=== PATIENT | female | born 1935 | race Caucasian/White ===

== ENCOUNTER 2018-07-16 10:39 | Emergency (ER) | payer MEDICARE, OTHER ==
[~2018-07-16] VITALS: Ht 165.1 cm; Wt 117.9 kg
[~2018-07-16 10:39] MED LIST: ALBU90OI6 INH; AMLO5 PO; ATEN50 PO; BISA5EC PO; BREO ELLIPTA 21 EACH INH; BUME2 PO; CALCIUM +VIT D PO; CYAN500 PO; DESO.25TC TOP; DESO.25TO TOP; DIGO.25 PO; FURO80; FURO80 PO; GABA100 PO; LEVSOD75 PO; METO50 PO; MULVITMINF PO; Metoprolol Tar100 MG PO; Questran4 GM PO; VERA120ER; VITAMIN D PO; WARF5 PO; XARELTO15 MG PO
[2018-07-16 11:30] LABS: BASOPHILS ABSOLUTE AUTO 0.03 K/mm3 (0.00-0.23); BASOPHILS PERCENT AUTO 0 % (0-2); EOSINOPHILS ABSOLUTE AUTO 0.51 K/mm3 (0.00-0.68); EOSINOPHILS PERCENT AUTO 7 % (0-6); Hematocrit 41.5 % (33.0-51.0); IMMATURE GRAN ABSOLUTE AUTO 0.03 K/mm3 (0.00-0.10); IMMATURE GRAN PERCENT AUTO 0 % (0-1); LYMPHOCYTES ABSOLUTE AUTO 1.14 K/mm3 (0.84-5.20); LYMPHOCYTES PERCENT AUTO 15 % (21-46); MONOCYTES PERCENT AUTO 11 % (4-13); Mean Corpuscular HGB 31.7 pg (26.0-34.0); Mean Corpuscular HGB Conc 31.3 g/dL (31.5-36.5); Mean Corpuscular Volume 101 fL (80-100); Mean Platelet Volume 9.4 fL (9.1-12.4); NEUTROPHILS ABSOLUTE AUTO 4.99 K/mm3 (1.96-9.15); NEUTROPHILS PERCENT AUTO 67 % (41-73); Platelet Count 292 K/mm3 (150-400); RDW Coefficient Variation 15.3 % (11.7-14.2); RDW Standard Deviation 56.8 fL (35.1-46.3)
[2018-07-16 11:42] LABS: Source, Urine Clean Catch
[2018-07-16 11:46] LABS: Albumin, Blood 2.6 g/dL (3.4-5.0); Albumin/Globulin Ratio 0.7 (0.8-1.8); Bilirubin, Total 0.4 mg/dL (0.1-1.0); Bun/Creatinine Ratio 27.4 (12.0-20.0); Calcium, Blood 8.7 mg/dL (8.5-10.1); Creatinine, Blood 1.17 mg/dL (0.40-1.00); Globulin, Blood 3.5 g/dL (2.2-4.0); Total Protein, Blood 6.1 g/dL (6.4-8.2)
[2018-07-16 11:51] LABS: Bilirubin, Urine Neg (Neg); Blood, Urine Neg (Neg); Glucose Qualitative, Urine Neg (Neg); Ketones, Urine Neg (Neg); Leukocyte Esterase, Urine 2+ (Neg); Nitrite, Urine Neg (Neg); Protein, Urine Neg (Neg); Urobilinogen, Urine NORM (Normal)
[2018-07-16 12:09] LABS: Appearance, Urine Clear (Clear); Bacteria Few /hpf; Color, Urine Yellow (P-Yellow); Red Blood Cells, Urine Not Seen /hpf (0-2); Squamous Epithelial Cells Few /hpf (Few); White Blood Cells, Urine 0-2 /hpf (0-5)
== END 2018-07-16 13:10 | disposition home or self-care (01) ==
LOC: ER 10:39
PROVIDERS: Emergency Medicine
DX: R55 Syncope and collapse (principal); I13.0 Hypertensive heart and chronic kidney disease with heart failure and stage 1 through stage 4 chronic kidney disease, or unspecified chronic kidney disease; I50.9 Heart failure, unspecified; I48.91 Unspecified atrial fibrillation; N18.9 Chronic kidney disease, unspecified; E03.9 Hypothyroidism, unspecified; E66.9 Obesity, unspecified; M19.90 Unspecified osteoarthritis, unspecified site; G62.9 Polyneuropathy, unspecified; Z79.899 Other long term (current) drug therapy
CPT/HCPCS: 36415; 51701; 80053; 81001; 85025; 87077; 87086; 87186; 93005; 93010; 96360; 99284-25; J7030

== ENCOUNTER → 2018-09-22 | Outpatient (CLI) | payer MEDICARE, OTHER ==
[2018-09-22 19:29] LABS: Bilirubin, Urine Neg (Neg); Blood, Urine 2+ (Neg); Glucose Qualitative, Urine Neg (Neg); Ketones, Urine Neg (Neg); Leukocyte Esterase, Urine 3+ (Neg); Nitrite, Urine Pos (Neg); Protein, Urine 2+ (Neg); Urobilinogen, Urine NORM (Normal)
[2018-09-22 19:41] LABS: Appearance, Urine Hazy (Clear); Color, Urine Yellow (P-Yellow)
[2018-09-22 19:42] LABS: White Blood Cells, Urine TNTC /hpf (0-5)
[2018-09-22 19:44] LABS: Bacteria Many /hpf; Squamous Epithelial Cells Few /hpf (Few)
== END | disposition home or self-care (01) ==
LOC: LAB 18:56 → LAB SHORT 18:56
PROVIDERS: Internal Medicine Nephrology
DX: N39.0 Urinary tract infection, site not specified (principal)
CPT/HCPCS: 81001; 87077; 87086; 87186

== ENCOUNTER → 2018-10-18 | Outpatient (CLI) | payer MEDICARE, OTHER ==
[2018-10-18 13:11] LABS: Source, Urine Clean Catch
[2018-10-18 14:14] LABS: Bilirubin, Urine Neg (Neg); Blood, Urine Neg (Neg); Glucose Qualitative, Urine Neg (Neg); Ketones, Urine Neg (Neg); Leukocyte Esterase, Urine Neg (Neg); Nitrite, Urine Pos (Neg); Protein, Urine Neg (Neg); Urobilinogen, Urine NORM (Normal)
[2018-10-18 14:35] LABS: Appearance, Urine Clear (Clear); Color, Urine Yellow (P-Yellow)
[2018-10-18 14:36] LABS: Bacteria Mod /hpf; Calcium Oxalate Crystals Few /hpf; Red Blood Cells, Urine 0-2 /hpf (0-2); Squamous Epithelial Cells Few /hpf (Few); White Blood Cells, Urine 0-2 /hpf (0-5)
== END | disposition home or self-care (01) ==
LOC: LAB 13:08 → LAB SHORT 13:08
PROVIDERS: Nurse Practitioner Family
DX: N39.0 Urinary tract infection, site not specified (principal)
CPT/HCPCS: 81001

== ENCOUNTER → 2018-10-19 | Outpatient (CLI) | payer MEDICARE, OTHER ==
[2018-10-19 14:22] LABS: Appearance, Urine Clear (Clear); Bilirubin, Urine Neg (Neg); Blood, Urine Neg (Neg); Color, Urine Yellow (P-Yellow); Glucose Qualitative, Urine Neg (Neg); Ketones, Urine Neg (Neg); Leukocyte Esterase, Urine 2+ (Neg); Nitrite, Urine Neg (Neg); Protein, Urine Neg (Neg); Specific Gravity, Urine 1.015 (1.003-1.022); Urobilinogen, Urine NORM (Normal)
[2018-10-19 15:17] LABS: Bacteria Few /hpf; Red Blood Cells, Urine 0-2 /hpf (0-2); Squamous Epithelial Cells Few /hpf (Few)
== END | disposition home or self-care (01) ==
LOC: LAB 13:47 → LAB SHORT 13:47
PROVIDERS: Nurse Practitioner Family
DX: N39.0 Urinary tract infection, site not specified (principal)
CPT/HCPCS: 81001; 87077; 87086; 87186

== ENCOUNTER → 2019-02-20 | Outpatient (CLI) | payer MEDICARE, OTHER ==
[~2019-02-20] MED LIST changes: +ACET500 PO; +ASCO500 PO; -BUME2 PO; +Bumetanide1 MG PO; +CALCIUM 600 +1 EA11 PO; +CENTRUM SILVER1 EAC2 PO; +ESCI10 PO; +HYDR1TAB94 PO; +LEVFLO500 PO; +METO100ER PO; +METO2.5 PO; +MIRALAX17 GM PO; +POTA10T PO; +TRAZ50 PO
[2019-02-21 15:43] LABS: Bilirubin, Urine Neg (Neg); Blood, Urine 1+ (Neg); Glucose Qualitative, Urine Neg (Neg); Ketones, Urine Neg (Neg); Leukocyte Esterase, Urine 3+ (Neg); Nitrite, Urine Pos (Neg); Protein, Urine Neg (Neg); Urobilinogen, Urine NORM (Normal)
[2019-02-21 15:54] LABS: Appearance, Urine Clear (Clear); Color, Urine Yellow (P-Yellow)
[2019-02-21 15:55] LABS: Bacteria Mod /hpf; Squamous Epithelial Cells Few /hpf (Few); White Blood Cells, Urine 50-100 /hpf (0-5)
== END | disposition home or self-care (01) ==
LOC: LAB SHORT 15:27 → LAB 15:27 → LAB SHORT 02-21 15:27
PROVIDERS: Nurse Practitioner Family
DX: N39.0 Urinary tract infection, site not specified (principal)
CPT/HCPCS: 81001; 87077; 87086; 87186

== ENCOUNTER → 2019-02-28 | Outpatient (CLI) | payer MEDICARE, OTHER | END | disposition home or self-care (01) | LOC: LAB SHORT 13:18 → LAB 13:18 → LAB SHORT 03-01 13:12 | DX: N39.0 Urinary tract infection, site not specified (principal) | CPT/HCPCS: 87086 ==

== ENCOUNTER → 2019-03-14 | Outpatient (CLI) | payer MEDICARE, OTHER ==
[2019-03-15 19:02] LABS: Source, Urine Clean Catch
[2019-03-15 19:13] LABS: Bilirubin, Urine Neg (Neg); Blood, Urine Neg (Neg); Glucose Qualitative, Urine Neg (Neg); Ketones, Urine Neg (Neg); Leukocyte Esterase, Urine Neg (Neg); Nitrite, Urine Neg (Neg); Protein, Urine Neg (Neg); Urobilinogen, Urine NORM (Normal)
[2019-03-15 19:19] LABS: Appearance, Urine Clear (Clear); Color, Urine Yellow (P-Yellow)
== END | disposition home or self-care (01) ==
LOC: LAB SHORT 18:59 → LAB 18:59
PROVIDERS: Nurse Practitioner Family
DX: N39.0 Urinary tract infection, site not specified (principal)
CPT/HCPCS: 81003

== ENCOUNTER 2019-03-25 21:08 | Inpatient (IN) | payer MEDICARE, OTHER ==
[~2019-03-25] VITALS: Ht 157.5 cm; Wt 120.5 kg
[~2019-03-25 21:08] MED LIST changes: -ACET500 PO; -ASCO500 PO; -CALCIUM 600 +1 EA11 PO; -CENTRUM SILVER1 EAC2 PO; -ESCI10 PO; -HYDR1TAB94 PO; -LEVFLO500 PO; -METO100ER PO; -METO2.5 PO; -MIRALAX17 GM PO; -POTA10T PO; -TRAZ50 PO
[2019-03-25 21:55] LABS: BASOPHILS ABSOLUTE AUTO 0.02 K/mm3 (0.00-0.23); BASOPHILS PERCENT AUTO 0 % (0-2); EOSINOPHILS ABSOLUTE AUTO 0.01 K/mm3 (0.00-0.68); EOSINOPHILS PERCENT AUTO 0 % (0-6); Hematocrit 42.4 % (33.0-51.0); Hemoglobin 13.9 g/dL (11.5-16.0); IMMATURE GRAN ABSOLUTE AUTO 0.06 K/mm3 (0.00-0.10); IMMATURE GRAN PERCENT AUTO 0 % (0-1); LYMPHOCYTES ABSOLUTE AUTO 1.02 K/mm3 (0.84-5.20); LYMPHOCYTES PERCENT AUTO 7 % (21-46); MONOCYTES ABSOLUTE AUTO 1.23 K/mm3 (0.16-1.47); MONOCYTES PERCENT AUTO 8 % (4-13); Mean Corpuscular HGB 33.1 pg (26.0-34.0); Mean Corpuscular HGB Conc 32.8 g/dL (31.5-36.5); Mean Corpuscular Volume 101 fL (80-100); Mean Platelet Volume 9.5 fL (9.1-12.4); NEUTROPHILS ABSOLUTE AUTO 12.96 K/mm3 (1.96-9.15); NEUTROPHILS PERCENT AUTO 85 % (41-73); Platelet Count 373 K/mm3 (150-400); RDW Coefficient Variation 14.3 % (11.7-14.2); RDW Standard Deviation 53.1 fL (35.1-46.3)
[2019-03-25 22:16] LABS: Albumin, Blood 3.4 g/dL (3.4-5.0); Albumin/Globulin Ratio 0.9 (0.8-1.8); Bilirubin, Total 0.9 mg/dL (0.1-1.0); Bun/Creatinine Ratio 48.8 (12.0-20.0); Calcium, Blood 10.8 mg/dL (8.5-10.1); Creatinine, Blood 1.21 mg/dL (0.40-1.00); Globulin, Blood 3.7 g/dL (2.2-4.0); Potassium, Blood 3.8 mmol/L (3.5-5.5); Total Protein, Blood 7.1 g/dL (6.4-8.2)
[2019-03-25 23:31] LABS: Source, Urine Clean Catch
[2019-03-25 23:39] LABS: Bilirubin, Urine Neg (Neg); Blood, Urine Neg (Neg); Glucose Qualitative, Urine Neg (Neg); Ketones, Urine Neg (Neg); Leukocyte Esterase, Urine 3+ (Neg); Nitrite, Urine Neg (Neg); Protein, Urine Neg (Neg); Urobilinogen, Urine NORM (Normal)
[2019-03-25 23:42] LABS: Appearance, Urine Clear (Clear); Color, Urine Yellow (P-Yellow)
[2019-03-25 23:46] LABS: Bacteria Many /hpf; Red Blood Cells, Urine Not Seen /hpf (0-2); Squamous Epithelial Cells Few /hpf (Few); White Blood Cells, Urine 50-100 /hpf (0-5)
[2019-03-26] MEDS ORDERED: ACET500 PO (03:57)
[2019-03-26] MEDS ORDERED: CALCIUM 600 +1 EA11 PO (04:01)
[2019-03-26] MEDS ORDERED: ESCI10 PO (04:04)
[2019-03-26] MEDS ORDERED: METO2.5 PO (04:07)
[2019-03-26] MEDS ORDERED: METO100ER PO (04:08)
[2019-03-26] MEDS ORDERED: CENTRUM SILVER1 EAC2 PO (04:09)
[2019-03-26] MEDS ORDERED: POTA10T PO (04:10)
[2019-03-26] MEDS ORDERED: TRAZ50 PO (04:11)
[2019-03-26] MEDS ORDERED: ASCO500 PO (04:23)
[2019-03-26] MEDS ORDERED: HYDR1TAB94 PO (04:28)
[2019-03-26 05:34] LABS: Hematocrit 39.8 % (33.0-51.0); Hemoglobin 12.9 g/dL (11.5-16.0); Mean Corpuscular HGB 33.1 pg (26.0-34.0); Mean Corpuscular HGB Conc 32.4 g/dL (31.5-36.5); Mean Corpuscular Volume 102 fL (80-100); Mean Platelet Volume 9.7 fL (9.1-12.4); Platelet Count 343 K/mm3 (150-400); RDW Coefficient Variation 14.2 % (11.7-14.2); RDW Standard Deviation 53.5 fL (35.1-46.3); White Blood Cell Count 13.83 K/mm3 (4.00-11.30)
[2019-03-26 06:01] LABS: Bun/Creatinine Ratio 46.2 (12.0-20.0); Calcium, Blood 10.1 mg/dL (8.5-10.1); Creatinine, Blood 1.06 mg/dL (0.40-1.00); Globulin, Blood 3.1 g/dL (2.2-4.0); Potassium, Blood 3.1 mmol/L (3.5-5.5); Total Protein, Blood 6.1 g/dL (6.4-8.2)
[2019-03-26 11:01] LABS: International Normalized Ratio 1.22; Prothrombin Time Results 12.7 Sec (9.7-11.5)
[2019-03-27 05:06] LABS: Bun/Creatinine Ratio 34.6 (12.0-20.0); Calcium, Blood 9.4 mg/dL (8.5-10.1); Creatinine, Blood 1.04 mg/dL (0.40-1.00); Potassium, Blood 3.4 mmol/L (3.5-5.5)
[2019-03-28 00:57] LABS: Bun/Creatinine Ratio 27.7 (12.0-20.0); Calcium, Blood 9.1 mg/dL (8.5-10.1); Creatinine, Blood 1.01 mg/dL (0.40-1.00); Potassium, Blood 3.3 mmol/L (3.5-5.5)
[2019-03-29 05:11] LABS: Bun/Creatinine Ratio 21.8 (12.0-20.0); Calcium, Blood 8.6 mg/dL (8.5-10.1); Creatinine, Blood 1.1 mg/dL (0.40-1.00); Potassium, Blood 3.5 mmol/L (3.5-5.5)
[2019-03-29] MEDS ORDERED: LEVFLO500 PO (14:35)
[2019-03-29] MEDS ORDERED: MIRALAX17 GM PO (14:36)
== END 2019-03-30 10:52 | disposition home or self-care (01) | DRG 389 ==
LOC: ER 21:08 → MEDS 21:09
PROVIDERS: Emergency Medicine; Internal Medicine; ADMIT Internal Medicine
PROC: 0D9670Z Drainage of Stomach with Drainage Device, Via Natural or Artificial Opening (ICD-10-PCS; principal; 2019-03-26)
DX: K56.609 Unspecified intestinal obstruction, unspecified as to partial versus complete obstruction (principal); N39.0 Urinary tract infection, site not specified; I50.42 Chronic combined systolic (congestive) and diastolic (congestive) heart failure; E87.0 Hyperosmolality and hypernatremia; I13.0 Hypertensive heart and chronic kidney disease with heart failure and stage 1 through stage 4 chronic kidney disease, or unspecified chronic kidney disease; I48.91 Unspecified atrial fibrillation; N18.3 Chronic kidney disease, stage 3 (moderate); E87.6 Hypokalemia; E03.9 Hypothyroidism, unspecified; I48.0 Paroxysmal atrial fibrillation; Z66 Do not resuscitate; F03.90 Unspecified dementia, unspecified severity, without behavioral disturbance, psychotic disturbance, mood disturbance, and anxiety; B95.2 Enterococcus as the cause of diseases classified elsewhere; Z88.8 Allergy status to other drugs, medicaments and biological substances; Z86.73 Personal history of transient ischemic attack (TIA), and cerebral infarction without residual deficits
CPT/HCPCS: 36415; 74177; 80048; 80053; 81001; 83605; 83690; 85025; 85027; 85610; 85730; 87040; 87077; 87086; 87186; 94640; 94760; 96361; 96365; 97110; 97162; 97165; 97530; 99285-25; J1644; J1650; J1956; J2543; J3010; J3480; J7030; J7040; J7120; P9612; Q9967

== ENCOUNTER → 2019-04-11 | Outpatient (CLI) | payer MEDICARE, OTHER ==
[~2019-04-11] MED LIST changes: +ACET500 PO; +ASCO500 PO; +CALCIUM 600 +1 EA11 PO; +CENTRUM SILVER1 EAC2 PO; +ESCI10 PO; +HYDR1TAB94 PO; +LEVFLO500 PO; +METO100ER PO; +METO2.5 PO; +MIRALAX17 GM PO; +POTA10T PO; +TRAZ50 PO
[2019-04-11 13:02] LABS: Bilirubin, Urine Neg (Neg); Blood, Urine Neg (Neg); Glucose Qualitative, Urine Neg (Neg); Ketones, Urine Neg (Neg); Leukocyte Esterase, Urine Neg (Neg); Nitrite, Urine Neg (Neg); Protein, Urine Neg (Neg); Urobilinogen, Urine NORM (Normal)
[2019-04-11 13:09] LABS: Appearance, Urine Clear (Clear); Color, Urine Yellow (P-Yellow)
== END ==
LOC: LAB 12:38 → LAB SHORT 12:38
PROVIDERS: Nurse Practitioner Family
DX: N39.0 Urinary tract infection, site not specified (principal)
CPT/HCPCS: 81003

== ENCOUNTER → 2019-09-14 | Outpatient (CLI) | payer MEDICARE, OTHER ==
[2019-09-15 14:20] LABS: Stool Occult Bld Immuno 1 Positive (NEGATIVE); Stool Occult Bld Immuno 2 Positive (NEGATIVE); Stool Occult Bld Immuno 3 Positive (NEGATIVE)
== END | disposition home or self-care (01) ==
LOC: LAB 12:59 → LAB SHORT 12:59
PROVIDERS: Nurse Practitioner Family
DX: K92.1 Melena (principal)
CPT/HCPCS: G0328

== ENCOUNTER 2019-11-11 15:04 | Emergency (ER) | payer MEDICARE, OTHER ==
[~2019-11-11] VITALS: Ht 160 cm; Wt 120.2 kg
[2019-11-11] MEDS ORDERED: Roxicodone5 MG PO (16:18)
== END 2019-11-11 17:20 | disposition home or self-care (01) ==
LOC: ER 15:04
DX: M54.5 Low back pain (principal); I48.91 Unspecified atrial fibrillation; I12.9 Hypertensive chronic kidney disease with stage 1 through stage 4 chronic kidney disease, or unspecified chronic kidney disease; N18.9 Chronic kidney disease, unspecified; E03.9 Hypothyroidism, unspecified; Z79.51 Long term (current) use of inhaled steroids; Z79.899 Other long term (current) drug therapy
CPT/HCPCS: 36415; 72100; 96374; 99283-25; J1170

== ENCOUNTER 2019-11-15 14:04 | Observation (INO) | payer MEDICARE, OTHER ==
[~2019-11-15] VITALS: Ht 157.5 cm; Wt 121.4 kg
[~2019-11-15 14:04] MED LIST changes: +ALBU90OI INH; -ALBU90OI6 INH; +BUME2 PO; -Bumetanide1 MG PO; +Roxicodone5 MG PO
[2019-11-15 16:13] LABS: BASOPHILS ABSOLUTE AUTO 0.02 K/mm3 (0.00-0.23); BASOPHILS PERCENT AUTO 0 % (0-2); EOSINOPHILS ABSOLUTE AUTO 0.16 K/mm3 (0.00-0.68); EOSINOPHILS PERCENT AUTO 2 % (0-6); Hematocrit 33.6 % (33.0-51.0); Hemoglobin 10.6 g/dL (11.5-16.0); IMMATURE GRAN ABSOLUTE AUTO 0.03 K/mm3 (0.00-0.10); IMMATURE GRAN PERCENT AUTO 0 % (0-1); LYMPHOCYTES ABSOLUTE AUTO 1.22 K/mm3 (0.84-5.20); LYMPHOCYTES PERCENT AUTO 17 % (21-46); MONOCYTES PERCENT AUTO 16 % (4-13); Mean Corpuscular HGB 33.3 pg (26.0-34.0); Mean Corpuscular HGB Conc 31.5 g/dL (31.5-36.5); Mean Corpuscular Volume 106 fL (80-100); Mean Platelet Volume 9.3 fL (9.1-12.4); NEUTROPHILS ABSOLUTE AUTO 4.74 K/mm3 (1.96-9.15); NEUTROPHILS PERCENT AUTO 64 % (41-73); Platelet Count 300 K/mm3 (150-400); RDW Coefficient Variation 14.6 % (11.7-14.2); RDW Standard Deviation 57.7 fL (35.1-46.3); Red Blood Cell Count 3.18 M/mm3 (3.80-5.20); White Blood Cell Count 7.37 K/mm3 (4.00-11.30)
[2019-11-15 16:34] LABS: International Normalized Ratio 1.47; Prothrombin Time Results 15.4 Sec (9.7-11.5)
[2019-11-15 16:35] LABS: Albumin, Blood 2.3 g/dL (3.4-5.0); Albumin/Globulin Ratio 0.6 (0.8-1.8); Bilirubin, Total 0.6 mg/dL (0.1-1.0); Bun/Creatinine Ratio 26.2 (12.0-20.0); Calcium, Blood 9.3 mg/dL (8.5-10.1); Creatinine, Blood 1.22 mg/dL (0.40-1.00); Globulin, Blood 3.8 g/dL (2.2-4.0); Total Protein, Blood 6.1 g/dL (6.4-8.2)
[2019-11-15] MEDS ORDERED: PANT40 PO (17:20)
[2019-11-15] MEDS ORDERED: PROAIR DIGIHAL90 MCG INH (17:22)
--- NOTE | 2019-11-15 17:43 | NUR ---
SHIFT SUMMARY ED ADMIT THIS AFTERNOON. PATIENT SETTLED INTO ROOM. DENIES PAIN, NAUSEA, AND SHORTNESS OF BREATH. PATIENT REPORTS FEELING WEAK AND SLEEPY OFF AND ON THE LAST WEEK. PATIENT NPO. CALL LIGHT IN REACH.
[2019-11-15 22:33] LABS: Source, Urine Clean Catch
[2019-11-15 22:35] LABS: Appearance, Urine Cloudy (Clear); Bilirubin, Urine Neg (Neg); Blood, Urine 1+ (Neg); Color, Urine Yellow (P-Yellow); Glucose Qualitative, Urine Neg (Neg); Ketones, Urine Neg (Neg); Leukocyte Esterase, Urine 3+ (Neg); Nitrite, Urine Pos (Neg); Protein, Urine 1+ (Neg); Urobilinogen, Urine NORM (Normal); pH, Urine 6.5 (5.0-8.0)
--- NOTE | 2019-11-15 22:38 | NUR ---
URINE SAMPLE COLLECTED AND SENT TO LAB.
[2019-11-15 22:41] LABS: Bacteria Many /hpf; Red Blood Cells, Urine 0-2 /hpf (0-2); Squamous Epithelial Cells Few /hpf (Few)
--- NOTE | 2019-11-16 01:43 | NUR ---
HOSPITALIST DR CHAPARRO ORDERD LAB: ABG TO COMPLETE SLEEP STUDY PER RT.
--- NOTE | 2019-11-16 03:52 | NUR ---
SHIFT SUMMARY PATIENT HAD NO ACUTE CHANGES OBSERVED. AXOX 3 AND BEDREST. SLEEP STUDY IN PROGRESS. HOSPITALIST DR CHAPARRO ORDERED LAB: ABG TO COMPLETE SLEEP STUDY PER RT. PIV REMAINS INTACT. NS INFUSING AT 50 mL/HR. VSS/AFEBRILE. DENIES PAIN, SOB, AND N/V. URINE SAMPLE COLLECTED AND SENT TO LAB. TAKES MEDICATION WHOLE. CALL LIGHT IN REACH. BED IN LOWEST POSITION. WILL CONTINUE TO MONITOR UNTIL DAY SHIFT NURSE ASSUMES CARE.
[2019-11-16 05:11] LABS: BASOPHILS ABSOLUTE AUTO 0.02 K/mm3 (0.00-0.23); BASOPHILS PERCENT AUTO 0 % (0-2); EOSINOPHILS ABSOLUTE AUTO 0.22 K/mm3 (0.00-0.68); EOSINOPHILS PERCENT AUTO 3 % (0-6); Hematocrit 31.4 % (33.0-51.0); Hemoglobin 10.2 g/dL (11.5-16.0); IMMATURE GRAN ABSOLUTE AUTO 0.02 K/mm3 (0.00-0.10); IMMATURE GRAN PERCENT AUTO 0 % (0-1); LYMPHOCYTES ABSOLUTE AUTO 1.24 K/mm3 (0.84-5.20); LYMPHOCYTES PERCENT AUTO 18 % (21-46); MONOCYTES ABSOLUTE AUTO 1.06 K/mm3 (0.16-1.47); MONOCYTES PERCENT AUTO 16 % (4-13); Mean Corpuscular HGB 33.4 pg (26.0-34.0); Mean Corpuscular HGB Conc 32.5 g/dL (31.5-36.5); Mean Corpuscular Volume 103 fL (80-100); Mean Platelet Volume 9.1 fL (9.1-12.4); NEUTROPHILS ABSOLUTE AUTO 4.25 K/mm3 (1.96-9.15); NEUTROPHILS PERCENT AUTO 62 % (41-73); Platelet Count 301 K/mm3 (150-400); RDW Coefficient Variation 14.6 % (11.7-14.2); RDW Standard Deviation 55.2 fL (35.1-46.3); Red Blood Cell Count 3.05 M/mm3 (3.80-5.20); White Blood Cell Count 6.81 K/mm3 (4.00-11.30)
[2019-11-16 05:27] LABS: Bun/Creatinine Ratio 25.7 (12.0-20.0); Calcium, Blood 9.1 mg/dL (8.5-10.1); Creatinine, Blood 1.13 mg/dL (0.40-1.00); Potassium, Blood 3.7 mmol/L (3.5-5.5)
[2019-11-16 05:37] LABS: PCO2 Arterial 41.1 mmHg (35-45); PO2 Arterial 63.1 mmHg (80-100); pH Blood Arterial 7.48 (7.35-7.45)
--- NOTE | 2019-11-16 18:19 | NUR ---
SHIFT SUMMARY PT TRIED WORKING WITH OCCUPATIONAL AND PHYSICAL THERAPY BUT WAS UNABLE TO GET OOB. NO COMPLAINTS OF PAIN THIS SHIFT. PT WANTING TO GO BACK TO [facility] HOUSE BUT HAS TO GET STRONGER BEFORE RETURNING. PT PULLED IV OUT THIS AFTERNOON DUE TO NOT WANTING IT ANYMORE. DR. BOSWELL AWARE AND ORDERED TO LEAVE IV OUT. NO ACUTE CHANGES THIS SHIFT. CALL LIGHT IN REACH. WAITING FOR PLACEMENT.
[2019-11-17 05:17] LABS: Bun/Creatinine Ratio 21.5 (12.0-20.0); Calcium, Blood 9.5 mg/dL (8.5-10.1); Creatinine, Blood 1.3 mg/dL (0.40-1.00); Potassium, Blood 3.5 mmol/L (3.5-5.5)
--- NOTE | 2019-11-17 06:28 | NUR ---
SHIFT SUMMARY PT IS AN 84 Y/O FEMALE, ADMITTED FOR GI BLEED AND INCREASED WEAKNESS. SHE IS A&O X 2-3, AND CURRENTLY ON BEDREST. PT WAS MEDICATED ONCE FOR HIP PAIN AND GENERALIZED DISCOMFORT WITH PRN OXYCODONE. NO COMPLAINTS OF NAUSEA OR SOB. VITAL SIGNS STABLE. NO ACUTE CHANGES IN PT CONDITION NOTED. WILL CONTINUE TO MONITOR AND TREAT PER EMAR UNTIL HAND OFF TO DAY SHIFT RN.
[2019-11-17] MEDS ORDERED: CIPRO250 MG PO (14:44)
--- NOTE | 2019-11-17 16:34 | NUR ---
D/C NOTE: [facility]. PT CALLED SON AND INFORMED HIM OF HER MOVING TO [facility] TODAY. [facility] LIFTED INTO W/C. [facility] TO TAKE PT TO [facility]. D/C AT 1630.
== END 2019-11-17 16:37 ==
LOC: MEDS 14:04
PROVIDERS: Internal Medicine; ADMIT Student in an Organized Health Care Education/Training Program
DX: K92.2 Gastrointestinal hemorrhage, unspecified (principal); G47.33 Obstructive sleep apnea (adult) (pediatric); I13.0 Hypertensive heart and chronic kidney disease with heart failure and stage 1 through stage 4 chronic kidney disease, or unspecified chronic kidney disease; G93.1 Anoxic brain damage, not elsewhere classified; G92 Toxic encephalopathy; T42.75XA Adverse effect of unspecified antiepileptic and sedative-hypnotic drugs, initial encounter; I50.32 Chronic diastolic (congestive) heart failure; N18.3 Chronic kidney disease, stage 3 (moderate); N39.0 Urinary tract infection, site not specified; Z88.8 Allergy status to other drugs, medicaments and biological substances; I48.0 Paroxysmal atrial fibrillation; Z79.899 Other long term (current) drug therapy; E66.9 Obesity, unspecified; Z66 Do not resuscitate
CPT/HCPCS: 36415; 36600; 71046; 80048; 80053; 81001; 82803; 85025; 85610; 85730; 87077; 87086; 87186; 94760; 94762; 97110; 97162; 97166; 97530; A9270-GY; G0378; J7030